=== PATIENT | female | born 1935 | race Caucasian/White ===

== ENCOUNTER 2021-03-10 14:13 | Outpatient (RCR) | payer MEDICARE, OTHER, SELFPAY | END 2021-04-06 15:07 | disposition home or self-care (01) | LOC: HO.WCC 14:13 | PROVIDERS: Visit Provider Surgery | DX: E11.621 Type 2 diabetes mellitus with foot ulcer (principal); L97.512 Non-pressure chronic ulcer of other part of right foot with fat layer exposed; L84 Corns and callosities; E11.40 Type 2 diabetes mellitus with diabetic neuropathy, unspecified; I10 Essential (primary) hypertension; Z87.891 Personal history of nicotine dependence; J44.9 Chronic obstructive pulmonary disease, unspecified | CPT/HCPCS: 11042; 99212 ==